=== PATIENT | male | born 1945 | race Caucasian/White ===

== ENCOUNTER 2023-10-02 15:33 | Outpatient (CLI) | payer OTHER | END 2023-10-02 23:59 | disposition home or self-care (01) | LOC: RAD 15:33 | PROVIDERS: ATTEND Family Medicine | DX: R13.12 Dysphagia, oropharyngeal phase (principal); K21.9 Gastro-esophageal reflux disease without esophagitis | CPT/HCPCS: 74230 ==

== ENCOUNTER 2025-04-20 15:58 | Emergency (ER) | payer MEDICARE, OTHER ==
[~2025-04-20] VITALS: Ht 175.3 cm; Wt 63.6 kg
--- NOTE | 2025-04-20 17:31 | Physician Documentation ---
History of Present Illness ~ Chief Complaint: Wound Stated Complaint: CAT BITE Time Seen by MD: 17:25 HPI Patient is seen today with complaints of being scratched by cat a few days ago of his right lower extremity is anterior patton and states it is becoming more red and swollen and painful and feels it might be infected. Patient denies any current fever or chills or body aches. He has no other concern or complaint at this time. Medication Reconciliation Allergies: Coded Allergies: No Known Allergies (Unverified , 04/20/25) Review of Systems Constitutional: Denies: chills, fever, weakness Eyes: Denies: pain, blurred vision ENT: Denies: ear pain, nose pain, throat pain, mouth pain Respiratory: Denies: cough, shortness of breath Cardiovascular: Denies: chest pain, palpitations Gastrointestinal: Denies: abdominal pain, nausea, vomiting Genitourinary: Denies: burning, dysuria Male Genitalia: Denies: penile discharge, testicular pain Neurological: Denies: headache, dizziness Musculoskeletal: Denies: pain, swelling Integumentary: Denies: rash, lesions Allergic/Immunologic: Denies: hives, itching Hematologic/Lymphatic: Denies: no symptoms reported Psychiatric: Denies: depression, anxiety Physical Exam Vital Signs: Temperature: 98.0, Source: Oral, Heart Rate: 104, Respiratory Rate: 16, BP: 158/87, Pulse Oximetry: 98, Weight: 63.640 Physical Exam General: Awake and Alert, no acute distress. HEENT: Conjunctiva pink, Sclera clear, Mucus Membranes moist. Neck: Supple without masses and tenderness. Resp: Unlabored. Lungs clear to auscultation bilaterally. Heart: Regular Rate and rhythm, normal S1 and S2 without murmur, rub or gallop. Skin: Patient on exam does have what appears to be infected cat scratch of the right lower extremity anterior patton area with surrounding erythema and induration without any purulent drainage or fluctuant mass or sign of abscess formation. Area is tender to palpation. Progress Results/Orders Results/Orders Completed Orders - MIKE SHI PAC Amox Tr/Potassium Clavulanate (Augmentin (04/20/25 17:26) Vital Signs 04/20/25 16:03 Temp 98.0 Pulse 104 Resp 16 B/P (MAP) 158/87 Pulse Ox 98 Medical Decision Making Findings Patient is seen today with complaints of being scratched by cat a few days ago of his right lower extremity is anterior patton and states it is becoming more red and swollen and painful and feels it might be infected. Patient denies any current fever or chills or body aches. He has no other concern or complaint at this time. Patient was given dose of Augmentin 875/125 mg by mouth in the ED today. Prescription of Augmentin was sent to patient's pharmacy one tab by mouth twice a day for 10 days. Patient will follow up with primary care in 2-5 days if no better as needed sooner. Return to ED with any worsening, concerning or srini nging symptoms. Departure Disposition: HOME / SELF CARE / HOMELESS Impression: Primary Impression: Cat scratch Additional Impression: Cat scratch of lower leg Qualified Codes: S80.811A - Abrasion, right lower leg, initial encounter; W55.03XA - Scratched by cat, initial encounter Condition: Improved Discharge Instructions: Cellulitis, Adult, [id number] Additional Instructions: Patient was given dose of Augmentin 875/125 mg by mouth in the ED today. Prescription of Augmentin was sent to patient's pharmacy one tab by mouth twice a day for 10 days. Patient will follow up with primary care in 2-5 days if no better as needed sooner. Return to ED with any worsening, concerning or changin g symptoms. Referrals: NO PRIMARY CARE PROVIDER (PCP) Prescriptions Amox Tr/Potassium Clavulanate 875/125 MG (Augmentin 875/125 MG) 875 Mg-125 Mg Tablet 1 TAB PO Q12H for 10 Days, #20 TAB Prov: MIKE SHI 04/20/25 Signature Scribe Signature: No scribe Attestation: No scribe MIKE SHI Apr 20, 2025 17:31
[2025-04-20] MEDS ORDERED: AMOX-580 PO (17:50)
[2025-04-20] MEDS: amox tr/potassium clavulanate 875/125mg TAB PO STA (17:56)
[2025-04-20 17:58] VITALS: BP 151/83; PULSE 77; RESP 16; TEMP 98; O2SAT 97
== END 2025-04-20 18:01 | disposition home or self-care (01) ==
LOC: ER 15:58
DX: S80.811A Abrasion, right lower leg, initial encounter (principal); W55.03XA Scratched by cat, initial encounter; Y93.89 Activity, other specified; Y92.89 Other specified places as the place of occurrence of the external cause; Y99.8 Other external cause status
CPT/HCPCS: 99283